=== PATIENT | female | born 1955 | race American Indian/Alaskan Native ===

== ENCOUNTER 2017-06-06 06:12 | Inpatient (IN) | payer OTHER ==
[2017-06-01 10:35] VITALS: BMI 31.3
[2017-06-06] MEDS ORDERED: Propofol 10 mg/ml Inj (20 ML) ONE ×2 (07:15→07:59)
[2017-06-06] MEDS ORDERED: ePHEDrine 50 mg/ml Inj ONE (07:16)
[2017-06-06] MEDS ORDERED: Midazolam 2 MG/2 ML VIAL ONE (07:16)
[2017-06-06] MEDS ORDERED: Bupivacaine HCl 0.25% PF (30 ml) Inj ONE (07:17)
[2017-06-06] MEDS ORDERED: Rocuronium 10 mg/ml (5 ml) ONE (07:17)
[2017-06-06] MEDS ORDERED: Succinylcholine 200 mg/10 ml Inj IV ONE (07:17)
[2017-06-06] MEDS ORDERED: Absorbable Gelatin Sponge Size 100 ONE (07:18)
[2017-06-06] MEDS ORDERED: Thrombin Topical 5,000 Int Units Spray Kit ONE (07:18)
[2017-06-06] MEDS ORDERED: Lidocaine 4% (Laryng-O-Jet) Kit MM ONE (07:18)
[2017-06-06] MEDS ORDERED: Lidocaine 2% w Epi 1:100,000 Inj IJ ONE ×2 (07:18→08:20)
--- NOTE | 2017-06-06 07:25 | CP.PCM.CON ---
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 Moncada,surgical and non surgical options d/w pt due to worsening symptoms pt wishes to proceed with surgery,prior hx Lumbar Spondylosis with Laminectomy and fusion in the past with resolution of LE symptoms as well. Review of Systems - Review of Systems Systems not reviewed;Unavailable: Acuity of Condition - EENT Eyes: Requires Corrective Lenses - Gastrointestinal Additional comments: GERD no meds,video esphogram in the past which was normal - Musculoskeletal Musculoskeletal: Neck Pain, Numbness, Radiating Pain into Limb, Tingling - Integumentary Additional comments: healed surgical scars - Neurological Neurological: As Per HPI - Endocrine Additional Comments: Hx Right parathyroidectomy Past Patient History - Infectious Disease Hx of Infectious Diseases: None - Tetanus Immunizations Tetanus Immunization: Unknown - Past Medical History & Family History Past Medical History?: No - Past Social History Smoking Status: Never Smoked Cigar Use: No 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 [employer] Alcohol: Occasional Drugs: Denies Home Situation {Lives}: With Family Domestic Violence: Negative - CARDIAC Hx Cardiac Disorders: No - PULMONARY Hx Respiratory Disorders: No - NEUROLOGICAL Hx Neurological Disorder: Yes Other/Comment: numbness in left arm - HEENT Hx HEENT Problems: No - RENAL Hx Chronic Kidney Disease: No - ENDOCRINE/METABOLIC Hx Endocrine Disorders: No - HEMATOLOGICAL/ONCOLOGICAL Hx Blood Disorders: No - INTEGUMENTARY Hx Dermatological Problems: No - MUSCULOSKELETAL/RHEUMATOLOGICAL Hx Musculoskeletal Disorders: No Other/Comment: NECK PAIN - GASTROINTESTINAL Hx Gastrointestinal Disorders: No - GENITOURINARY/GYNECOLOGICAL Hx Genitourinary Disorders: No - PSYCHIATRIC Hx Psychophysiologic Disorder: No Hx Emotional Abuse: No Hx Physical Abuse: No - SURGICAL HISTORY Hx Surgeries: Yes Hx Arthroscopy: Yes (right knee) Hx Section: Yes (x1) Hx Herniorrhaphy: Yes Hx Musculoskeletal Surgery: Yes (cervical neck surgery x6) Hx Orthopedic Surgery: Yes (rotator cuff shoulder) Hx Parathyroidectomy: Yes Other/Comment: para-thyroid removed - ANESTHESIA Hx Anesthesia: Yes Hx Anesthesia Reactions: No Hx Malignant Hyperthermia: No Has any member of the family had a problem w/ anesthesia?: No Meds Allergies/Adverse Reactions: Allergies Allergy/AdvReac Type Severity Reaction Status Date / Time morphine Allergy ITCHING Verified 06/14/16 07:36 Physical Exam - Constitutional Appears: Well, Non-toxic, No Acute Distress - Head Exam Head Exam: ATRAUMATIC, NORMAL INSPECTION, NORMOCEPHALIC - Eye Exam Eye Exam: EOMI, Normal appearance, PERRL Pupil Exam: NORMAL ACCOMODATION - ENT Exam ENT Exam: Mucous Membranes Moist - Neck Exam Neck exam: Positive for: Normal Inspection, Tenderness Additional comments: healed surgical scar's,+ lower c spine tenderness - Respiratory Exam Respiratory Exam: Clear to Auscultation Bilateral, NORMAL BREATHING PATTERN - Cardiovascular Exam Cardiovascular Exam: REGULAR RHYTHM, +S1, +S2 - GI/Abdominal Exam GI & Abdominal Exam: Normal Bowel Sounds, Soft - Rectal Exam Rectal Exam: Deferred - Extremities Exam Extremities exam: Positive for: normal inspection, pedal pulses present - Back Exam Back exam: NORMAL INSPECTION, vertebral tenderness Additional comments: + upper T spine tenderness to palpation - Neurological Exam Neurological exam: Alert, Oriented x3 Additional comments: LOPEZ x 4 antigravity with 4/5 motor strength LUE,otherwise 5/5 throughout decreased sensation and environmental services aide,+ 2 DTR's - Psychiatric Exam Psychiatric exam: Normal Affect, Normal Mood - Skin Skin Exam: Dry, Intact, Normal Color Results - Vital Signs Recent Vital Signs: Last Vital Signs Temp 98.7 F 06/06/17 06:50 Pulse 74 06/06/17 06:52 Resp 20 06/06/17 06:50 BP 134/93 H 06/06/17 06:50 Pulse Ox 99 06/06/17 06:50 Assessment & Plan - Assessment and Plan (Free Text) Assessment: 62 yo female with Cervical/Thoracic Spondylosis,LUE radiculapathy and myelopathy /Borderline Htn/Diet controlled/GERD Plan: here for proposed posterior cervical/thoracic decompression possible multi level with Dr. Moncada,risks and benefits of surgery d/w pt,expressed understanding and wishes to proceed.
[2017-06-06] MEDS ORDERED: Liquid Adhesive TOP ONE (07:38)
[2017-06-06] MEDS ORDERED: Bacitracin Ointment 30 GM TUBE ONE (07:39)
[2017-06-06] MEDS ORDERED: Lactated Ringer's 1,000 ML IV ONE ×2 (07:45→08:00)
[2017-06-06] MEDS: Bacitracin OINT 15GM TOP ONE ×2 (08:20→10:46)
[2017-06-06] MEDS ORDERED: Absorbable Gelatin Sponge Size 100 TP ONE (08:20)
[2017-06-06] MEDS ORDERED: Thrombin Topical 5,000 Int Units Spray Kit TOP ONE ×2 (08:20)
[2017-06-06] MEDS ORDERED: HEMOSTATIC MATRIX 10 ML DIS.NEEDLE TOP ONE ×2 (08:20)
[2017-06-06] MEDS ORDERED: Neostigmine Methylsulfate 3mg/3ml Syringe IV ONE (08:30)
[2017-06-06] MEDS ORDERED: DiphenhydrAMINE 50 mg/ml Inj IVP PRN (10:17)
[2017-06-06] MEDS ORDERED: Naloxone 0.4 mg/ml Inj (Adult) IVP PRN (10:19)
[2017-06-06] MEDS ORDERED: Oxycodone/Acetaminophen 5/325 mg Tab PO PRN (10:52)
[2017-06-06] MEDS ORDERED: HYDROmorphone 0.5 mg/0.5 ml ISec IVP PRN (10:53)
[2017-06-06] MEDS: HYDROmorphone 0.5 mg/0.5 ml ISec IVP PRN (11:15)
[2017-06-06] MEDS: Lactated Ringer's 1,000 ML IV SCH (12:20)
--- NOTE | 2017-06-06 14:25 | CP.PCM.HP ---
History of Present Illness - History of Present Illness History of Present Illness: 62 yo female presents to same day surgery for scheduled cervical foraminotomy C7 -T1 s/p recurrent cervical and thoracic spondylosis and myelopathy refractory to prior decompression and conservative management. Denies significant PMHx. Denies chest pain, SOB, dizziness, palpitations, nausea or vomiting. PMD: none Specialists: Dr. Moncada-neurosurgery PMHx: recurrent cervical and thoracic spondylosis and myelopathy SurgHx: inguinal hernia repair, lumbar decompression 2013, , rotator cuff repair-Right shoulder, left knee arthroscopy, cervical decompression x 3 FMHx: non contributory SocHx: denies tobacco/Etoh or drugs Medications: none Allergies: Morphine-rash Present on Admission - Present on Admission Any Indicators Present on Admission: No History of DVT/PE: No History of Uncontrolled Diabetes: No Urinary Catheter: No Decubitus Ulcer Present: No History Surgical Site Infection Following: None Review of Systems - Review of Systems All systems: reviewed and no additional remarkable complaints except (for what is mentioned in the HPI) - Constitutional Constitutional: absent: Chills, Fever, Malaise - EENT Eyes: absent: Blurred Vision, Change in Vision Nose/Mouth/Throat: absent: Nasal Congestion, Nasal Discharge - Cardiovascular Cardiovascular: absent: Chest Pain, Dyspnea - Respiratory Respiratory: absent: Cough, Hemoptysis - Gastrointestinal Gastrointestinal: absent: Abdominal Pain, Nausea, Vomiting - Genitourinary Genitourinary: absent: Difficulty Urinating, Dysuria - Musculoskeletal Musculoskeletal: Back Pain (chronic cervical-thoracic), Neck Pain (chronic radiating down left arm) - Integumentary Integumentary: absent: Bleeding Lesions - Neurological Neurological: absent: Disequilibrium, Dizziness, Headaches - Psychiatric Psychiatric: absent: Anxiety, Depression - Endocrine Endocrine: absent: Polydipsia, Polyuria - Hematologic/Lymphatic Hematologic: absent: Easy Bleeding, Easy Bruising Past Patient History - Infectious Disease Hx of Infectious Diseases: None - Tetanus Immunizations Tetanus Immunization: Unknown - Past Medical History & Family History Past Medical History?: No - Past Social History Smoking Status: Never Smoked Cigar Use: No 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[employer] Alcohol: Occasional Drugs: Denies Home Situation {Lives}: With Family Domestic Violence: Negative - CARDIAC Hx Cardiac Disorders: No - PULMONARY Hx Respiratory Disorders: No - NEUROLOGICAL Hx Neurological Disorder: Yes Other/Comment: numbness in left arm - HEENT Hx HEENT Problems: No - RENAL Hx Chronic Kidney Disease: No - ENDOCRINE/METABOLIC Hx Endocrine Disorders: No - HEMATOLOGICAL/ONCOLOGICAL Hx Blood Disorders: No - INTEGUMENTARY Hx Dermatological Problems: No - MUSCULOSKELETAL/RHEUMATOLOGICAL Hx Musculoskeletal Disorders: No Other/Comment: NECK PAIN - GASTROINTESTINAL Hx Gastrointestinal Disorders: No - GENITOURINARY/GYNECOLOGICAL Hx Genitourinary Disorders: No - PSYCHIATRIC Hx Psychophysiologic Disorder: No Hx Emotional Abuse: No Hx Physical Abuse: No - SURGICAL HISTORY Hx Surgeries: Yes Hx Arthroscopy: Yes (right knee) Hx Section: Yes (x1) Hx Herniorrhaphy: Yes Hx Musculoskeletal Surgery: Yes (cervical neck surgery x6) Hx Orthopedic Surgery: Yes (rotator cuff shoulder) Hx Parathyroidectomy: Yes Other/Comment: para-thyroid removed - ANESTHESIA Hx Anesthesia: Yes Hx Anesthesia Reactions: No Hx Malignant Hyperthermia: No Has any member of the family had a problem w/ anesthesia?: No Meds Allergies/Adverse Reactions: Allergies Allergy/AdvReac Type Severity Reaction Status Date / Time morphine Allergy ITCHING Verified 06/14/16 07:36 Physical Exam - Constitutional Appears: No Acute Distress - Head Exam Head Exam: ATRAUMATIC, NORMOCEPHALIC - Eye Exam Eye Exam: EOMI - ENT Exam ENT Exam: Mucous Membranes Moist - Neck Exam Neck exam: Positive for: Full Rom - Respiratory Exam Respiratory Exam: Clear to Auscultation Bilateral, NORMAL BREATHING PATTERN - Cardiovascular Exam Cardiovascular Exam: REGULAR RHYTHM, +S1, +S2 - GI/Abdominal Exam GI & Abdominal Exam: Normal Bowel Sounds, Soft (obese) - Extremities Exam Extremities exam: Positive for: full ROM. Negative for: calf tenderness, pedal edema - Neurological Exam Neurological exam: Alert, CN II-XII Intact, Oriented x3 - Psychiatric Exam Psychiatric exam: Normal Affect, Normal Mood - Skin Skin Exam: Dry, Normal Color, Warm Results - Vital Signs Recent Vital Signs: Last Vital Signs Temp 98.5 F 06/06/17 12:39 Pulse 110 H 06/06/17 12:39 Resp 18 06/06/17 12:39 BP 137/82 06/06/17 12:39 Pulse Ox 95 06/06/17 12:39 - Labs Labs: Laboratory Results - last 24 hr 06/06/17 06:51 Blood Type A POSITIVE Antibody Screen Negative BBK History Checked Patient has bt Assessment & Plan - Assessment and Plan (Free Text) Assessment: 62 yo female presents to same day surgery for scheduled cervical foraminotomy C7 -T1 s/p recurrent cervical and thoracic spondylosis and myelopathy. -admit to telemetry -resume regular diet after surgery -pain management -taper decadron -f/u cbc, cmp and ZOEY drain output - Date & Time Date: 06/06/17 Time: 09:00
--- NOTE | 2017-06-06 14:43 | RAD ---
PROCEDURE: Intraoperative fluoroscopy HISTORY: POSTERIOR CERVICAL COMPARISON: None available TECHNIQUE: Intraoperative fluoroscopy was provided for cervical fixation. Total time of fluoroscopy was 40.3 seconds. FINDINGS: Two fluoroscopic spot films are submitted. Films are on file for review. IMPRESSION: Fluoroscopy provided.
[2017-06-06] MEDS ORDERED: Dexamethasone 4 MG in Sodium Chloride 0.9% 50 ML IVPB SCH (16:00)
[2017-06-06] MEDS: Dexamethasone 4 mg/1 ml IV SCH ×2 (16:00→22:02)
[2017-06-06] MEDS: ceFAZolin 1 GM in Sodium Chloride 0.9% 100 ML IVPB SCH (17:00)
[2017-06-06] MEDS: Benzocaine/Menthol (Cepacol) Lozenge PO PRN (18:11)
[2017-06-07] MEDS: Lactated Ringer's 1,000 ML IV SCH (00:09)
[2017-06-07] MEDS: ceFAZolin 1 GM in Sodium Chloride 0.9% 100 ML IVPB SCH ×3 (00:10→17:40)
--- NOTE | 2017-06-07 01:16 | OP ---
PROCEDURE DATE: 06/06/2017 PREOPERATIVE DIAGNOSIS: Cervical spondylosis with myelopathy. POSTOPERATIVE DIAGNOSIS: Cervical spondylosis with myelopathy. PROCEDURES: Left-sided T1, T2, T3 laminectomy and decompression, T1 to T3 posterolateral fusion. supervisor education has been used. Microscope has been used. Fluoroscopy has been used. SURGEON: Anil Moncada MD. CUTTING MACHINE TENDER DECORATIVE: Brina Belcher, physician assistant to the ceo. Brina Belcher is a physician assistant to the ceo, who helped me perform the surgery, stayed from the beginning to the end of the case. DESCRIPTION OF PROCEDURE: The patient was brought to the operating room, anesthetized with general endotracheal anesthesia. The head was placed in a 3-pin [place] head sugar reprocess operator. The patient was placed in a prone position on a Mina frame. The head sugar reprocess operator had been clamped to the bed. Care was taken to protect all the pressure points. The back of the cervical thoracic area thoroughly prepped and draped in same sterile manner after marking the skin incision for laminectomy. After prepping and draping the area, the skin has been incised. Bleeding skins have been controlled with bipolar primer expeditor and drier. Using a Bovie primer expeditor and drier, paraspinal muscles have been detached, attachments of spinous process at C7, T1, T2 and T3. Identification of levels has been done with the help of fluoroscopy. Under microscopic examination, the lateral part of the lamina of T1, T2 and T3 and major part of the facets of T1-T2, T2-T3, have been drilled by using a fine Kerrison punch. All this thinned-out bone, major part of the facets and ligamentum flavum have been removed, decompressing the area. Foraminotomy was performed at T1-T2, T2-T3. After that, the lateral aspect of the facet joint has been decorticated. The bone that has been removed and mixed with the [place] has been placed in the area, achieving a posterolateral fusion. After that, hemostasis was best achieved. Kedar drain was placed in the wound and brought out through a separate stab skin incision. Muscles and fascia were closed with 1 Vicryl, subcutaneous with 3 Vicryl, and skin had been closed with intradermal 3 Vicryl stitches. The patient tolerated the procedure, and after procedure, was mobilized to the recovery room in stabilized condition. Anil Moncada MD [facility] # [id number]
[2017-06-07] MEDS: Dexamethasone 4 mg/1 ml IV SCH ×4 (03:30→21:14)
[2017-06-07] MEDS: Benzocaine/Menthol (Cepacol) Lozenge PO PRN ×2 (05:59→08:43)
[2017-06-07] MEDS: Pantoprazole 40 mg EC Tab PO SCH (08:44)
[2017-06-07 08:50] LABS: BASO % 0.2 % (0.0-2.0); HEMOGLOBIN 10.1 g/dL (12.0-16.0); LYMPH # 0.9 K/uL (1.0-4.3); MEAN CELL VOLUME 94.5 fl (81.0-99.0); MEAN CORPUSCULAR HEMOGLOBIN 31.3 pg (27.0-31.0); MEAN CORPUSCULAR HGB CONC 33.1 g/dL (33.0-37.0); MONO # 0.3 K/uL (0.0-0.8); NEUT # 6.1 K/uL (1.8-7.0); NEUT % 82.8 % (50.0-75.0); NRBC % 0.1 % (0.0-0.0); RBC 3.23 Mil/uL (3.80-5.20); RED CELL DISTRIBUTION WIDTH 13.7 % (11.5-14.5); WHITE BLOOD COUNT 7.3 K/uL (4.8-10.8)
[2017-06-07 08:57] LABS: BLOOD UREA NITROGEN 11 mg/dl (7-17); CALCIUM 9.5 mg/dL (8.4-10.2); GFR AFRICAN-AMERICAN > 60; GFR NON-AFRICAN AMERICAN > 60
--- NOTE | 2017-06-07 13:22 | CP.PCM.PN ---
Subjective - Date & Time of Evaluation Date of Evaluation: 06/07/17 Time of Evaluation: 10:15 - Subjective Subjective: Patient seen and examined at bedside with attending-Dr. Dominguez. Awake, alert, reports severe sore throat, tolerating cold fluids PO. Denies chest pain, dizziness, weakness, nausea or vomiting. Objective - Vital Signs/Intake and Output Vital Signs (last 24 hours): Temp Pulse Resp BP Pulse Ox 98.3 F 70 18 144/79 97 06/07/17 12:00 06/07/17 12:00 06/07/17 12:00 06/07/17 12:00 06/07/17 12:00 Intake and Output: 06/07/17 06/07/17 06:59 18:59 Intake Total 1700 Output Total 80 Balance 1620 - Medications Medications: Current Medications Benzocaine/Menthol (Cepacol Sore Throat) 1 dayron PO Q3 PRN PRN Reason: Sore Throat Last Admin: 06/07/17 08:43 Dose: 1 dayron Cyclobenzaprine HCl (Flexeril) 5 mg PO TID PRN PRN Reason: Muscle spasm Dexamethasone (Decadron Inj) 3 mg IV Q6 [facility] Docusate Sodium (Colace) 100 mg PO BID [facility] Last Admin: 06/07/17 08:43 Dose: 100 mg Hydromorphone HCl (Dilaudid) 0.5 mg PO Q4 PRN PRN Reason: Pain, moderate (4-7) Cefazolin Sodium 1 gm/ Sodium (Chloride) 100 mls @ 100 mls/hr IVPB Q8 [facility] PRN Reason: Protocol Last Admin: 06/07/17 08:42 Dose: 100 mls/hr Ibuprofen (Motrin Tab) 600 mg PO Q6 PRN PRN Reason: Pain, moderate (4-7) Last Admin: 06/07/17 12:09 Dose: 600 mg Naloxone HCl (Narcan) 0.1 mg IVP Q2M PRN PRN Reason: Opiate reversal Ondansetron HCl (Zofran Inj) 4 mg IVP Q6 PRN PRN Reason: Nausea/Vomiting Last Admin: 06/06/17 14:16 Dose: 4 mg Pantoprazole Sodium (Protonix Ec Tab) 40 mg PO DAILY [facility] Last Admin: 06/07/17 08:44 Dose: 40 mg - Labs Labs: 06/07/17 08:30 06/07/17 08:30 - Constitutional Appears: Non-toxic - Head Exam Head Exam: ATRAUMATIC, NORMOCEPHALIC - Eye Exam Eye Exam: EOMI, PERRL - ENT Exam ENT Exam: Mucous Membranes Moist - Neck Exam Additional comments: neck in soft brace, ZOEY drain with 50cc sero-sanguinous fluids - Respiratory Exam Respiratory Exam: NORMAL BREATHING PATTERN - Cardiovascular Exam Cardiovascular Exam: REGULAR RHYTHM, +S1, +S2 - GI/Abdominal Exam GI & Abdominal Exam: Soft (obese), Normal Bowel Sounds - Extremities Exam Extremities Exam: Full ROM. absent: Pedal Edema - Neurological Exam Neurological Exam: Alert, Awake, CN II-XII Intact, Oriented x3 - Psychiatric Exam Psychiatric exam: Normal Affect, Normal Mood - Skin Skin Exam: Dry, Normal Color, Warm Assessment and Plan - Assessment and Plan (Free Text) Assessment: 62 yo female POD #1 s/p cervical foraminotomy C7-T1 s/p recurrent cervical and thoracic spondylosis and myelopathy. With moderate amount of sero-sanguinous fluid in ZOEY drain. -Cepacol, Colace -regular diet -pain management -taper decadron -monitor ZOEY drain output -PT
[2017-06-08] MEDS: ceFAZolin 1 GM in Sodium Chloride 0.9% 100 ML IVPB SCH ×2 (01:58→09:00)
[2017-06-08] MEDS: Dexamethasone 4 mg/1 ml IV SCH ×2 (04:05→09:28)
[2017-06-08] MEDS: Benzocaine/Menthol (Cepacol) Lozenge PO PRN ×2 (04:46→09:26)
[2017-06-08 08:34] VITALS: RESP 20; O2SAT 99
[2017-06-08] MEDS: Pantoprazole 40 mg EC Tab PO SCH (09:28)
[2017-06-08 13:06] VITALS: BP 148/89; PULSE 76; TEMP 98.5
--- NOTE | 2017-06-08 13:39 | CP.PCM.PCO ---
Assessment & Plan - Assessment and Plan (Free Text) Assessment: pt. doing well- ambulating in room, denies fever, chills, sob, unilateral weakness or pain/ numbness or tingling ZOEY drain output 120 x 24 hrs- may remove ZOEY drain as per ZOEY drain removed, tip intact, site clean dry intact surgical site care instructions provided to pt. and pt. to f/u with pmd and in 1-2 weeks
--- NOTE | 2017-06-08 13:57 | CP.PCM.DIS ---
Provider - Provider Date of Admission: 06/06/17 10:44 Attending physician: Napoleon Dominguez MD Primary care physician: Coleman Gambino MD Consults: Dr. Moncada-neurosurgery Time Spent in preparation of Discharge (in minutes): 30 Diagnosis - Discharge Diagnosis (1) Cervical spinal stenosis Status: Chronic Priority: Low (2) Myelopathy Status: Chronic Priority: Low (3) Spondylosis Status: Chronic Priority: Low Hospital Course - Lab Results Lab Results: Most Recent Lab Values WBC 7.3 K/uL (4.8-10.8) D 06/07/17 08:30 RBC 3.23 Mil/uL (3.80-5.20) L 06/07/17 08:30 Hgb 10.1 g/dL (12.0-16.0) L D 06/07/17 08:30 Hct 30.5 % (34.0-47.0) L 06/07/17 08:30 MCV 94.5 fl (81.0-99.0) 06/07/17 08:30 MCH 31.3 pg (27.0-31.0) H 06/07/17 08:30 MCHC 33.1 g/dL (33.0-37.0) 06/07/17 08:30 RDW 13.7 % (11.5-14.5) 06/07/17 08:30 Plt Count 180 K/uL (130-400) 06/07/17 08:30 MPV 9.0 fl (7.2-11.7) 06/07/17 08:30 Neut % (Auto) 82.8 % (50.0-75.0) H 06/07/17 08:30 Lymph % (Auto) 13.0 % (20.0-40.0) L 06/07/17 08:30 [place] % (Auto) 4.0 % (0.0-10.0) 06/07/17 08:30 Eos % (Auto) 0.0 % (0.0-4.0) 06/07/17 08:30 Baso % (Auto) 0.2 % (0.0-2.0) 06/07/17 08:30 Neut # 6.1 K/uL (1.8-7.0) 06/07/17 08:30 Lymph # 0.9 K/uL (1.0-4.3) L 06/07/17 08:30 [place] # 0.3 K/uL (0.0-0.8) 06/07/17 08:30 Eos # 0.0 K/uL (0.0-0.7) 06/07/17 08:30 Baso # 0.0 K/uL (0.0-0.2) 06/07/17 08:30 Sodium 141 mmol/l (132-148) 06/07/17 08:30 Potassium 4.2 MMOL/L (3.6-5.0) 06/07/17 08:30 Chloride 105 mmol/L (98-107) 06/07/17 08:30 Carbon Dioxide 26 mmol/L (22-30) 06/07/17 08:30 Anion Gap 14 (10-20) 06/07/17 08:30 BUN 11 mg/dl (7-17) 06/07/17 08:30 Creatinine 0.6 mg/dl (0.7-1.2) L 06/07/17 08:30 Est GFR ( Amer) > 60 06/07/17 08:30 Est GFR (Non-Af Amer) > 60 06/07/17 08:30 Random Glucose 115 mg/dL (65-105) H 06/07/17 08:30 Calcium 9.5 mg/dL (8.4-10.2) 06/07/17 08:30 Blood Type A POSITIVE 06/06/17 06:51 Antibody Screen Negative 06/06/17 06:51 BBK History Checked Patient has bt 06/06/17 06:51 - Hospital Course Hospital Course: 62 yo female POD #2 s/p cervical foraminotomy C7-T1 s/p recurrent cervical and thoracic spondylosis and myelopathy. Patient had minimal amount of sero- sanguinous fluid in ZOEY drain, ZOEY drain was removed. Patient is ambulating without difficulty and tolerating PO diet, pain is managed with minimal mediation. Patient is stable for discharge with instructions to follow up with PMD-Dr. Gonzalez and neurosurgery-Dr. Moncada within 1 week. - Date & Time of H&P Date of H&P: 06/06/17 Time of H&P: 09:00 Discharge Exam - Head Exam Head Exam: ATRAUMATIC, NORMOCEPHALIC - Eye Exam Eye Exam: EOMI, PERRL - ENT Exam ENT Exam: Mucous Membranes Dry - Neck Exam Neck exam: Full Rom - Respiratory Exam Respiratory Exam: Clear to PA & Lateral, NORMAL BREATHING PATTERN - Cardiovascular Exam Cardiovascular Exam: REGULAR RHYTHM, +S1, +S2 - GI/Abdominal Exam GI & Abdominal Exam: Normal Bowel Sounds, Soft. absent: Tenderness - Extremities Exam Extremities exam: full ROM - Neurological Exam Neurological exam: Alert, CN II-XII Intact, Oriented x3 - Psychiatric Exam Psychiatric exam: Normal Affect, Normal Mood - Skin Skin Exam: Dry, Normal Color, Warm Discharge Plan - Discharge Medications Prescriptions: Cyclobenzaprine [Flexeril] 5 mg PO TID PRN #30 tab PRN Reason: Muscle Spasm Dexamethasone [Decadron] 4 mg PO Q8 #18 tab Ibuprofen [Motrin Tab] 600 mg PO Q6 PRN #30 tab PRN Reason: Pain, Moderate (4-7) Pantoprazole [Protonix EC Tab] 40 mg PO DAILY #30 ect - Follow Up Plan Condition: GOOD Disposition: HOME/ ROUTINE Additional Instructions: pt. doing well- ambulating in room, denies fever, chills, sob, unilateral weakness or pain/ numbness or tingling ZOEY drain output 120 x 24 hrs- may remove ZOEY drain as per pt. to f/u with pmd and in 1-2 weeks Referrals: Anil Moncada MD [Staff Provider] - Coleman Gambino MD [Primary Care Provider] - Clinical Quality Measures - Date & Time of Discharge Summary Date of Discharge Summary: 06/08/17 Time of Discharge Summary: 13:58
== END 2017-06-08 15:34 | disposition home or self-care (01) | DRG 519 ==
LOC: H.OPSURG 06:12 → H.TEL 10:44
PROVIDERS: ADMIT Family Medicine; ATTEND Family Medicine
PROC: 00NX0ZZ Release Thoracic Spinal Cord, Open Approach (ICD-10-PCS; principal; 2017-06-06 07:45)
DX: M47.14 Other spondylosis with myelopathy, thoracic region (principal); M47.12 Other spondylosis with myelopathy, cervical region; M48.02 Spinal stenosis, cervical region; K21.9 Gastro-esophageal reflux disease without esophagitis; R03.0 Elevated blood-pressure reading, without diagnosis of hypertension; Z88.6 Allergy status to analgesic agent

== ENCOUNTER 2018-04-24 06:13 | Day surgery (SDC) | payer OTHER ==
[2018-04-22 10:11] VITALS: BMI 29.7
--- NOTE | 2018-04-24 07:16 | CP.SDSHP ---
Same Day Surgery H & P - History Proposed Procedure: C7-T1 and C6-C7 facet block Pre-Op Diagnosis: Cervical spodylosis - Previous Medical/Surgical History Pain: 8.Very Severe Previous Surgical History: Multiple cervical and lumbar laminectomies, R shoulder arthroscopy, L knee arthroscopy, inguinal hernia repair, C section - Allergies Allergies: Allergies morphine Allergy (Verified 04/24/18 06:43) RASH - Current Medications Current Medications: as per Med rec - Physical Exam General Appearance: NAD Mental Status: Alert & Oriented x3 Neuro: WNL Heart: WNL Lungs: WNL GI: WNL - {Optional Preform as Required} Abdomen: WNL Integument: WNL Ortho: WNL ENT: WNL Other Pertinent Findings: Neck: supple. old cervical laminectomy scar well healed. left paraspinal tenderness. sensation and motor intact AXN/MN/UN/RN - Impression Impression: Patient is a 63 y/o female who presents for elective C6-7 and C7-T1 facet block after failing conservative management. Risks/benefits/alternatives were explained to patient who understands and agrees to proceed with above procedure. Pt. Evaluated Today:Candidate for Anesthesia & Procedure: Yes - Date & Time Date: 04/24/18 Time: 07:20 Short Stay Discharge - Short Stay Discharge Admitting Diagnosis/Reason for Visit: M47.12 Disposition: HOME/ ROUTINE
[2018-04-24] MEDS ORDERED: Lactated Ringer's 1,000 ML IV ONE (10:00)
[2018-04-24] MEDS ORDERED: Lidocaine 2% PF (10 ml) Amp ONE (10:23)
[2018-04-24] MEDS ORDERED: methylPREDNISolone Depo 80 mg/ml Inj ONE (10:23)
[2018-04-24] MEDS ORDERED: Lidocaine 1% 5ml Abboject ONE (10:36)
[2018-04-24] MEDS ORDERED: Midazolam 2 MG/2 ML VIAL ONE (10:36)
[2018-04-24] MEDS ORDERED: Propofol 10 mg/ml Inj (20 ML) ONE (10:36)
[2018-04-24] MEDS ORDERED: methylPREDNISolone Depo 80 mg/ml Inj IM ONE (10:40)
[2018-04-24] MEDS ORDERED: Lidocaine 2% PF (10 ml) Amp INJ ONE (10:40)
[2018-04-24] MEDS ORDERED: Oxycodone/Acetaminophen 5/325 mg Tab PO PRN (11:00)
[2018-04-24] MEDS ORDERED: Lactated Ringer's 1,000 ML IV SCH (11:15)
--- NOTE | 2018-04-24 11:26 | PCM.SURG1 ---
Surgeon's Initial Post Op Note - Surgeon's Notes Surgeon: Anil Moncada MD [employer] Developer: Deisi TEAGUE Type of Anesthesia: IV Sedation Pre-Operative Diagnosis: Cervical spondylosis and myofascial pain Operative Findings: as above Post-Operative Diagnosis: as above Operation Performed: Left cervical medial nerve branch blocks C3-4/C4-5/C5-6. Trigger point injection left rhomboid Specimen/Specimens Removed: none Estimated Blood Loss: EBL {In ML}: 0 Blood Products Given: N/A Drains Used: No Drains Post-Op Condition: Good Date of Surgery/Procedure: 04/24/18 Time of Surgery/Procedure: 10:40
[2018-04-24 11:39] VITALS: RESP 18
[2018-04-24 13:35] VITALS: TEMP 98.1
[2018-04-24 17:00] VITALS: BP 130/80; PULSE 72; O2SAT 98
--- NOTE | 2018-04-24 20:54 | CARD ---
APPROVED REPORT Date of service: 04/24/2018 EKG Measurement Heart [id number] <Conclusion> Normal sinus rhythm Normal ECG
--- NOTE | 2018-04-25 01:24 | OP ---
PROCEDURE DATE: 04/24/2018 PREOPERATIVE DIAGNOSIS: Cervical facet arthropathy. POSTOPERATIVE DIAGNOSIS: Cervical facet arthropathy. PROCEDURE: Left cervical median nerve branch block at C3-4, C4-5, C5-6; trigger point injection, left rhomboid. SURGEON: Anil Moncada MD. SUPERVISOR HEAT TREATING: MIRTHA Handley ____. DESCRIPTION OF PROCEDURE: The patient was brought to the operating room, placed in a prone position. Head was placed in a donut. Care was taken to protect all pressure points. The patient was given mild sedation and the cervical area was thoroughly prepped in standard sterile manner. Lidocaine with epinephrine has been given corresponding to the needle point of entry at C3-4, C4-5, C5-6 on the left side. Once the lidocaine had been given by using a spinal needle, left sided C3-4, C4-5, C5-6 facet joints have been targeted and entered with the spinal needle in the medial part to target the median nerve branch block after the position which was confirmed with AP and lateral fluoroscopy. Marcaine mixed with Depo-Medrol given in this area and the patient tolerated the procedure. [place] have been removed and then by using a spinal needle, once again the left rhomboid had been targeted giving trigger point injections at three places, Marcaine mixed with Depo-Medrol and the patient tolerated the procedure. After the procedure, mobilized to the recovery room in stable condition. Anil Moncada MD [facility]
--- NOTE | 2018-04-25 10:02 | RAD ---
Date of service: 04/24/2018 PROCEDURE: Fluoroscopy up to 1 hr. HISTORY: Pain management COMPARISON: None TECHNIQUE: Standard protocol for this study/examination. FINDINGS: Total fluoroscopic time (continuous mode) utilized during the procedure 46.8 seconds. Total exam DLP: 10.80 (mGy). IMPRESSION: Less than 1 hr fluoroscopic assistance provided during performance of the procedure.
== END 2018-04-24 14:10 | disposition home or self-care (01) ==
LOC: MERGE 06:13 → H.OPSURG 06:13
PROVIDERS: ATTEND Neurological Surgery
DX: M47.12 Other spondylosis with myelopathy, cervical region (principal); J45.909 Unspecified asthma, uncomplicated
CPT/HCPCS: 64490; 64491; 64492; 93005; J1040; J2250; J2704; J3010; J7120